=== PATIENT | female | born 2000 | race Hispanic/Latino ===

== ENCOUNTER 2024-09-16 09:05 | Emergency (ER) | payer OTHER, BC ==
[~2024-09-16] VITALS: Ht 165.1 cm; Wt 104.3 kg
[2024-09-16 09:45] LABS: APPEARANCE,URINE CLOUDY (CLEAR); BILIRUBIN,URINE NEGATIVE (NEGATIVE); COLOR,URINE LIGHT-ORANGE (YELLOW); GLUCOSE, URINE (UA) NEGATIVE (NEGATIVE); KETONES,URINE 60 mg/dL (NEGATIVE); LEUKOCYTE ESTERASE ,URINE 250 Leu/uL (NEGATIVE); NITRATE,URINE NEGATIVE (NEGATIVE); OCCULT BLOOD,URINE LARGE (NEGATIVE); PROTEIN,URINE 30 mg/dL (NEGATIVE); UROBILINOGEN,URINE 0.2 mg/dL (0.2-1.0)
[2024-09-16 09:53] LABS: ADD UA MICROSCOPIC YES
--- NOTE | 2024-09-16 09:56 | ERN ---
General Chief Complaint: Abdominal Pain Stated Complaint: ABD PAIN Time Seen by MD: 09:52 Source: patient History of Present Illness Initial Comments Healthy 24-year-old female with lower abdominal pelvic pain. She says that she does have some ovarian cysts they are well documented and that every time she has her. She experiences this lower abdominal pelvic pain. Right now she rates her pain 7/10. This time she is also feeling like both of her legs are losing strength mostly from the pain and she is having trouble walking. Other symptoms are diarrhea. Patient also notes that she has heavy menses and she is having one now. Allergies: Coded Allergies: No Known Drug Allergies (Unverified Allergy, Unknown, 09/16/24) Past Medical History Past Medical History: Asthma Medical History Other: Patient states she often has heavy menses. Ultrasound proven ovarian cysts Past Surgical History: None Constitutional: (-) chills, (-) diaphoresis, (-) fever, (-) malaise, (-) weakness, (-) other documentation EENTM: (-) eye pain, (-) blurred vision, (-) tearing, (-) double vision, (-) ear pain, (-) ear discharge, (-) nose pain, (-) nose congestion, (-) throat pain, (-) Throat swelling, (-) mouth pain, (-) tooth pain, (-) mouth swelling, (-) other documentation Respiratory: (-) cough, (-) orthopnea, (-) short of breath, (-) stridor, (-) wheezing, (-) other documentation Cardiovascular: (-) chest pain, (-) edema, (-) palpitations, (-) syncope, (-) dyspnea on exertion, (-) other documentation Gastrointestinal/Abdominal: (+) diarrhea Musculoskeletal: (-) Neck pain, (-) back pain, (-) Flank Pain, (-) joint pain, (-) joint swelling, (-) muscle pain, (-) muscle stiffness, (-) gout, (-) other documentation Skin: (-) laceration, (-) contusion, (-) abrasion, (-) abscess, (-) rash, (-) change in color, (-) change in hair, (-) change in nails, (-) diaphoresis, (-) dryness, (-) other documentation Physical Exam General Appearance: (+) mild distress Orientation: (+) oriented x 3 Head/Face Trauma: No Eye: bilateral eye normal inspection, bilateral eye PERRL, bilateral eye EOMI Ear, Nose, Throat: (+) hearing grossly normal, (+) normal ENT inspection, (+) moist mucous membraine Neck: (+) normal inspection, (+) supple, (+) full range of motion Respiratory: (+) chest non-tender, (+) lungs clear, (+) well ventilated Heart: (+) regular, (+) no gallop Vascular: (+) no edema, (+) normal peripheral pulse Gastrointestinal: (+) tender Gastrointestinal Comment Patient's abdomen is tender inferior early bilaterally. Results Laboratory and Microbiology Lab and Micro Result Laboratory Tests Test 09/16/24 09:13 09/16/24 09:50 Urine Color LIGHT-ORANGE (YELLOW) Urine Appearance CLOUDY (CLEAR) H Urine pH 6.0 (5.0-8.0) Urine Specific [employer] 1.026 (1.001-1.031) Urine Protein 30 mg/dL (NEGATIVE) H Urine Glucose (UA) NEGATIVE mg/dL (NEGATIVE) Urine Ketones 60 mg/dL (NEGATIVE) H Urine Occult Blood LARGE (NEGATIVE) H Urine Nitrate NEGATIVE (NEGATIVE) Urine Bilirubin NEGATIVE mg/dL (NEGATIVE) Urine Urobilinogen 0.2 mg/dL (0.2-1.0) Urine Leukocyte Esterase 250 Yareli/uL (NEGATIVE) H Urine RBC TNTC /HPF (0-1) H Urine WBC 11-25 /HPF (0-1) H Urine Squamous Epithelial Cells FEW /HPF (0-2) Urine Bacteria None /HPF (None Seen) Urine HCG, Qualitative NEGATIVE (NEGATIVE) White Blood Count 10.2 K/uL (4.8-10.8) Red Blood Count 4.26 MIL/uL (4.00-5.50) Hemoglobin 14.0 g/dL (12.0-16.0) Hematocrit 39.7 % (36-48) Mean Corpuscular Volume 93.2 fL (79-99) Mean Corpuscular Hemoglobin 32.9 pg (27.0-33.0) Mean Corpuscular Hemoglobin Concent 35.3 g/dL (32.0-36.0) Red Cell Distribution Width 11.7 % (11.0-15.5) Platelet Count 351 K/uL (130-400) Mean Platelet Volume 10.3 fL (7.5-10.5) Immature Granulocyte % (Auto) 0.2 % (0-1) Neutrophils (%) (Auto) 82.6 % (40.0-77.0) H Lymphocytes (%) (Auto) 12.6 % (21.0-51.0) L Monocytes (%) (Auto) 3.7 % (3.0-13.0) Eosinophils (%) (Auto) 0.6 % (0.0-8.0) Basophils (%) (Auto) 0.3 % (0.0-5.0) Neutrophils # (Auto) 8.5 K/uL (1.8-7.7) H Lymphocytes # (Auto) 1.3 K/uL (1.0-4.8) Monocytes # (Auto) 0.4 K/uL (0.1-1.0) Eosinophils # (Auto) 0.06 K/uL (0.00-0.70) Basophils # (Auto) 0.03 K/uL (0.00-0.20) Absolute Immature Granulocyte (auto 0.02 K/uL (0-1) Nucleated Red Blood Cells 0.0 % (0.0-0.19) Sodium Level 140 mmol/L (136-145) Potassium Level 3.7 mmol/L (3.5-5.1) Chloride Level 105 mmol/L (101-111) Carbon Dioxide Level 25 mmol/L (21-32) Blood Urea Nitrogen 9 mg/dL (7-18) Creatinine 0.8 mg/dL (0.5-1.0) Glomerular Filtration Rate Calc 106 mL/min (>90) Random Glucose 101 mg/dL (70-105) Total Calcium 8.9 mg/dL (8.5-10.1) Lipase 27 U/L (16-77) MDM Given patient's history of ovarian cysts and symptomology. I will need to do a CBC to make sure she is not anemic. Chemistry panel. Urine test. A UA. And also a CT scan noncontrast abdomen pelvis to rule out kidney stones. Patient's CT scan is negative for renal calculi or bladder stones or urethral stones. Again was demonstrated a an ovarian cyst. Patient's laboratory studies reveal a UTI. Her CBC had a normal white blood cell count but there was a left shift. I gave the patient a g of Ancef. I will discharge her home with a prescription for Keflex. Of note the patient feels replenished with the fluid. ED Course Orders Procedure Category Date Status Time Vital Signs Per CPOE 09/16/24 Transmitted Routine 09:31 Saline Lock Iv CPOE 09/16/24 Transmitted 09:31 Cbc With Differential LAB 09/16/24 Complete 09:31 Lipase LAB 09/16/24 Complete 09:31 Urinalysis Profile LAB 09/16/24 Complete 09:31 Basic Metabolic Panel LAB 09/16/24 Complete 09:31 ,Urine Test LAB 09/16/24 Complete 09:31 Culture Urine TIMBO 09/16/24 In Process 09:53 Ct Abdomen/Pelvis CT 09/16/24 Resulted W/Wo Contras 09:56 Lactated Ringers PHA 09/16/24 Complete 1000ml (Lactated 10:17 Ketorolac PHA 09/16/24 Complete Tromethamine 30mg/Ml 10:30 Cefazolin Sodium 1 Gm PHA 09/16/24 Complete Vial (Ancef 1 Gm V 10:18 Iohexol (Omnipaque) PHA 09/16/24 Complete 11:42 Current Medications Medications (Trade) Dose Ordered Sig/Zane Route PRN Reason Start Time Stop Time Status Last Admin Dose Admin Cefazolin Sodium (ANCEF 1 gm vial) 1 gm ONCE STAT IVP 09/16/24 10:18 09/16/24 10:26 DC 09/16/24 11:04 Iohexol (Omnipaque) 75 ml STK-MED ONCE IV 09/16/24 11:42 09/16/24 11:42 DC Ketorolac Tromethamine (toRADol) 30 mg ONCE ONCE IVP 09/16/24 10:30 09/16/24 10:31 DC 09/16/24 11:04 Lactated Ringer's (Lactated Ringers 1000ml) 1,000 ml BOLUS STAT IV 09/16/24 10:17 09/16/24 10:20 DC 09/16/24 11:04 Vital Signs Date Time Temp Pulse Resp B/P (MAP) Pulse Ox O2 Delivery O2 Flow Rate FiO2 09/16/24 09:52 97.9 86 18 130/79 100 Room Air* 0 21 09/16/24 09:09 97.9 84 18 138/82 100 Room Air 0 DX & DISP Disposition: Discharge Departure Impression: Primary Impression: UTI (urinary tract infection) Condition: Stable Scripts Cephalexin Monohydrate (Keflex) 500 Mg Cap 500 MG PO QID for 7 Days, #28 CAP Prov: MARLA LUCAS MD 09/16/24 Referrals: SELF,REFERRAL (PCP) MARLA LUCAS MD September 16, 2024 09:56
[2024-09-16 09:59] LABS: MUCUS,URINE RARE LPF (None Seen); RBC,URINE TNTC /HPF (0-1); SQUAMOUS EPITHELIAL CELL,UR FEW /HPF (0-2)
[2024-09-16 10:05] LABS: BASOPHILS # (AUTO) 0.03 K/uL (0.00-0.20); BASOPHILS % (AUTO) 0.3 % (0.0-5.0); EOSINOPHILS # (AUTO) 0.06 K/uL (0.00-0.70); EOSINOPHILS % (AUTO) 0.6 % (0.0-8.0); HEMATOCRIT 39.7 % (36-48); IMMATURE GRANULOCYTE ABSOLUTE 0.02 K/uL (0-1); LYMPHOCYTES # (AUTO) 1.3 K/uL (1.0-4.8); LYMPHOCYTES % (AUTO) 12.6 % (21.0-51.0); MEAN CORPUSCULAR HEMOGLOBIN 32.9 pg (27.0-33.0); MEAN CORPUSCULAR HGB CONC 35.3 g/dL (32.0-36.0); MEAN CORPUSCULAR VOLUME 93.2 fL (79-99); MONOCYTES # (AUTO) 0.4 K/uL (0.1-1.0); MONOCYTES % (AUTO) 3.7 % (3.0-13.0); NEUTROPHILS # (AUTO) 8.5 K/uL (1.8-7.7); NEUTROPHILS % (AUTO) 82.6 % (40.0-77.0); PLATELET COUNT (AUTO) 351 K/uL (130-400); RED BLOOD CELL COUNT(AUTO) 4.26 MIL/uL (4.00-5.50); RED CELL DISTRIBUTION WIDTH 11.7 % (11.0-15.5); WHITE BLOOD COUNT (AUTO) 10.2 K/uL (4.8-10.8)
[2024-09-16 10:10] LABS: CREATININE 0.8 mg/dL (0.5-1.0); POTASSIUM 3.7 mmol/L (3.5-5.1)
[2024-09-16 10:21] LABS: HCG,QUALITATIVE URINE NEGATIVE (NEGATIVE)
[2024-09-16] MEDS: ketOROlac 30MG VIAL (30MG/ML) IVP ONE (11:04)
[2024-09-16] MEDS: ceFAZolin SODIUM 1 GM VIAL IVP STA (11:04)
[2024-09-16] MEDS: LACTATED RINGERS 1000ML IV STA (11:04)
[2024-09-16] MEDS ORDERED: IOHEXOL-350 75 ML VIAL IV ONE (11:42)
--- NOTE | 2024-09-16 12:37 | HMCIMG ---
CT ABDOMEN/PELVIS W/WO CONTRAS HISTORY: No additional history given. COMPARISON: None TECHNIQUE: Multiple sequential axial images of the abdomen and pelvis were obtained from the dome of the diaphragm through symphysis pubis. Patient was not given contrast through intravenous route. Oral contrast was not given. FINDINGS: No pleural effusion is seen bilaterally. There is no evidence of parenchymal disease or pulmonary nodule of the visualized lower lungs. Degenerative changes of the thoracolumbar spine are present. The heart is not enlarged. Liver measures 18 cm. The liver, spleen, adrenal glands and pancreas are unremarkable. There is no evidence of hydronephrosis bilaterally. No evidence of renal stone is seen. Fecal material is seen in the colon. There are normal size retroperitoneal and mesenteric lymph nodes. No ascites is seen. No CT evidence of acute appendicitis is seen. Clinical correlation is recommended. There is right adnexal cystic structure measuring 6.4 x 4.7 cm may be related to ovarian cyst versus cystic mass not excluded. Pelvic sidewalls are symmetric bilaterally. Bladder is well distended without wall thickening. IMPRESSION: 1. No CT evidence of acute appendicitis is seen. Clinical correlation is recommended. There is right adnexal cystic structure measuring 6.4 x 4.7 cm may be related to ovarian cyst versus cystic mass not excluded. CT was performed with one or more following dose reduction techniques: automated exposure control, adjustment of the mA and kv according to patient's size, or use of a iterative reconstruction technique.
[2024-09-16] MEDS ORDERED: CEPH500B PO (13:03)
[2024-09-16 13:32] VITALS: BP 110/68; PULSE 100; RESP 18; TEMP 98; O2SAT 99
== END 2024-09-16 14:12 | disposition home or self-care (01) ==
LOC: EDH 09:05
DX: N39.0 Urinary tract infection, site not specified (principal); J45.909 Unspecified asthma, uncomplicated
CPT/HCPCS: 99285; 74178; 96365; 96375; 80048; 83690; 85025; 87086; 81001; 81025; 36415; J1885; J7120; J0690; Q9967